=== PATIENT | male | born 1990 | race Caucasian/White ===

== ENCOUNTER 2018-02-13 21:13 | Emergency (ER) | payer OTHER ==
[~2018-02-13] VITALS: Ht 182.8 cm; Wt 133.8 kg
== END 2018-02-13 23:40 | disposition home or self-care (01) ==
LOC: ED 21:13
DX: S63.284A Dislocation of proximal interphalangeal joint of right ring finger, initial encounter (principal); W19.XXXA Unspecified fall, initial encounter; Y93.61 Activity, american tackle football; Y92.321 Football field as the place of occurrence of the external cause; Y99.9 Unspecified external cause status